=== PATIENT | female | born 1980 | race Caucasian/White ===

== ENCOUNTER 2023-11-06 03:12 | Emergency (ER) | payer BC ==
[2023-11-06 03:12] VITALS: BP 161/111
[~2023-11-06 03:12] MED LIST: LEXAPRO20 M1 PO; PROGESTERONE100 MG PO; WELLBUTRIN XL150 M2 PO; ZOLMITRIPTAN PO
== END 2023-11-06 03:38 | disposition left against medical advice (07) ==
LOC: ED 03:12
DX: F32.A Depression, unspecified (principal); F43.9 Reaction to severe stress, unspecified; F43.10 Post-traumatic stress disorder, unspecified; R45.851 Suicidal ideations; F17.200 Nicotine dependence, unspecified, uncomplicated

== ENCOUNTER 2024-02-29 14:00 | Outpatient (RCR) | payer BC | END 2024-03-12 | LOC: OT | DX: M79.641 Pain in right hand (principal) ==